=== PATIENT | female | born 1980 | race Caucasian/White ===

== ENCOUNTER 2017-11-03 19:00 | Inpatient (IN) | payer OTHER ==
[~2017-11-03] VITALS: Ht 162.6 cm; Wt 58.1 kg
--- NOTE | 2017-11-03 22:24 | NUR ---
PRE ASSESSMENT: A disheveled female with flushed face and odorous of ETOH in intake with a steady gait. BP 117/77 P 121 O2 sat 97% T 98.6 She states she drank today until a half an hour ago and consumed 750 ml of Vodka and 9 glasses of wine. She states the Vodka was just today and her regular pattern is 2-3 bottles of wine daily. She states she has horrible DTs when she tries to stop drinking on her own that include hallucinations and uncontrolled vomiting. She states her legs get weak and she can barely walk. She admits to being intoxicated at this time but also states she is starting to feel uncomfortable and wants to be medicated to calm her nerves. Offered support. She reports Rheumatoid Arthritis and IBS. The only meds she states she takes at home are Trazodone 50 mg po Q bedtime and OTC stomach acid pulp tester. Will assess on unit.
[2017-11-03] MEDS ORDERED: diphenhydrAMINE 50 MG CAPSULE PO PRN (22:45)
[2017-11-03] MEDS ORDERED: IBUPROFEN 600 MG TABLET PO PRN (22:45)
[2017-11-03] MEDS ORDERED: MIRALAX 17 GM POWD.PACK PO PRN (22:45)
[2017-11-03] MEDS ORDERED: MAGNESIUM HYDROXIDE 30 ML LIQUID UDC PO PRN (22:45)
[2017-11-03] MEDS ORDERED: MAG HYDROX/AL HYDROX/SIMETH 30 ML LIQUID UDC PO PRN (22:45)
[2017-11-03] MEDS ORDERED: LORAZEPAM 1 MG TABLET PO PRN (22:45)
[2017-11-03] MEDS ORDERED: ONDANSETRON 4 MG/2 ML VIAL IM PRN (22:45)
[2017-11-03] MEDS ORDERED: ACETAMINOPHEN 325 MG TABLET PO PRN (22:45)
[2017-11-03] MEDS ORDERED: DICYCLOMINE HCL 20 MG TABLET PO PRN (22:45)
[2017-11-03] MEDS ORDERED: LOPERAMIDE HCL 2 MG CAPSULE PO PRN ×2 (22:45)
[2017-11-03] MEDS ORDERED: ONDANSETRON ODT 4 MG TAB.RAPDIS SL PRN (22:45)
[2017-11-03] MEDS ORDERED: LORAZEPAM 2 MG/1 ML VIAL IM PRN (22:45)
[2017-11-03 23:02] LABS: *AMPHETAMINE, URINE NEGATIVE (NEGATIVE); *BARBITURATE, URINE NEGATIVE (NEGATIVE); *CANNABINOID, URINE NEGATIVE (NEGATIVE); *COCCAINE, URINE NEGATIVE (NEGATIVE); *OPIATE, URINE NEGATIVE (NEGATIVE); *PHENCYCLIDINE SCREEN,URINE NEGATIVE (NEGATIVE)
[2017-11-03 23:27] LABS: *URINE HCG, QUAL NEGATIVE (NEGATIVE)
[2017-11-03 23:44] LABS: BILIRUBIN,TOTAL 0.3 mg/dL (0.2-1.0); CREATININE 0.7 mg/dL (0.6-1.3); MAGNESIUM 2.2 mg/dL (1.8-2.4); POTASSIUM 3.6 mmol/L (3.5-5.1); TOTAL PROTEIN, SERUM 8.6 g/dL (6.4-8.2)
[2017-11-03 23:55] LABS: THYROID STIMULATING HORMONE 0.726 mIU/mL (0.358-3.740)
[2017-11-03 23:57] LABS: BASOPHILS % (AUTO) 0.6 % (0.0-2.0); EOSINOPHILS % (AUTO) 0.2 % (0.0-7.0); HEMATOCRIT 43.6 % (31.2-41.9); LYMPHOCYTES # (AUTO) 1.6 K/uL (20.0-40.0); LYMPHOCYTES % (AUTO) 18.2 % (20.5-51.5); MEAN CORPUSCULAR HEMOGLOBIN 31.4 uug (24.7-32.8); MEAN CORPUSCULAR HGB CONC 35 g/dL (32.3-35.6); MEAN CORPUSCULAR VOLUME 91.1 fL (75.5-95.3); MONOCYTES # (AUTO) 0.7 K/uL (2.0-10.0); MONOCYTES % (AUTO) 8.5 % (0.0-11.0); NEUTROPHILS # (AUTO) 6.2 K/uL (1.8-8.9); NEUTROPHILS % (AUTO) 72.5 % (38.5-71.5); PLATELET COUNT (AUTO) 293 K/uL (179-408); RED BLOOD CELL COUNT(AUTO) 4.78 MIL/uL (3.63-4.92); WHITE BLOOD COUNT (AUTO) 8.5 K/uL (3.8-11.8)
[2017-11-04] VITALS: BP 103/52
[2017-11-04] MEDS ORDERED: THIAMINE HCL 200 MG/2 ML VIAL IM ONE
[2017-11-04] MEDS ORDERED: TRAZODONE 50 MG TABLET PO ONE
--- NOTE | 2017-11-04 00:04 | NUR ---
ADMISSION: A 37 year old female admitted for medically supervised withdrawal from ETOH. She is A/O X 4 and her face is flushed. She is odorous of ETOH and disheveled. She laughs at inappropriate times and appears mildly intoxicated at this time.She states she tried to stop on her own but cannot as her s/s of w/d are too horrific. She reports DT's and hallucinates with leg weakness and uncontrolled vomiting. She states she has been trying to get sober for the last 10 years and can only put 9 months of sobriety together and then relapses. SUBSTANCE USE: She reports drinking 2 bottles of wine daily (1400 ml). since she relapsed in June (4 months).She states she drank today until a half an hour ago and consumed 750 ml of Vodka and 9 glasses of wine. She states the Vodka was just today and her regular pattern is 2 bottles of wine daily. She states she has horrible DTs when she tries to stop drinking on her own that include hallucinations and uncontrolled vomiting. She states her legs get weak and she can barely walk. She states she has been in numerous treatment centers over the last 10 years. [facility] and [facility] are what she can remember at this time. She states she was at [facility] in Oct 2017 and stayed sober until June 2017. 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 She states she is miserable when she drinks and it is ruining her relationship. She states she is motivated to get sober to be a better girlfriend, a better student and a productive member of society. She states she is miserable and needs help. MEDICAL/ PSYCH Hx;
--- NOTE | 2017-11-04 00:15 | NUR ---
VS wnl. Pt is in bed with eyes closed. Respirations even and unlabored. ERIS deferred. Addendum: 11/04/17 at 0250 by VANIA SANDERS RN Entered in error.
--- NOTE | 2017-11-04 00:16 | NUR ---
ADMISSION CONTINUED Medical Hx includes Rheumatoid Arthritis,IBS, Anxiety and Depression. She also reports insomnia and takes Trazodone 50 mg PO at bedtime for sleep which she brought in. She also brought in OTC stomach acid wash worker. She denies Psychiatric hospitalization and she denies S/I and H/I. She denies meds for RA or IBS. She attributes her relapsing to trauma in her childhood and the inability to cope with uncomfortable feelings that come with past trauma. She is reporting she feels agitated and wants meds to calm her down.ERIS 8. Waiting on BAL results. UDS positive for BZOS. She states she took Librium at home 8 days ago for 1 day to try and detox herself but was unsuccessful. She refused Thiamine IM. Oriented Pt to staff and unit. She is laying in bed with side rails up x 2 and bed locked and low. Will provide safe and supportive environment. Addendum: 11/04/17 at 0518 by VANIA SANDERS RN She denies Psychiatric hospitalizations.She states she is motivated to stay sober because she wants to keep her boyfriend and finish her doctoral program and become a productive member of society. Addendum: 11/04/17 at 0649 by VANIA SANDERS RN No PCP reported.
--- NOTE | 2017-11-04 00:30 | NUR ---
CIWA deferred. VS WNL. Respirations even and unlabored. Safety precautions noted.
[2017-11-04] MEDS ORDERED: CLON0.1T PO (01:14)
[2017-11-04] MEDS ORDERED: RANI-563 PO (01:14)
[2017-11-04] MEDS ORDERED: TRAZ-214 PO (01:14)
[2017-11-04] MEDS ORDERED: PROP10TA10 PO (02:30)
[2017-11-04 04:00] VITALS: BP 104/58
--- NOTE | 2017-11-04 04:10 | NUR ---
CIWA deferred. VS wnl.Pt in bed with eyes closed. Respirations even and unlabored.
[2017-11-04] MEDS: LORAZEPAM 1 MG TABLET PO PRN ×2 (05:56→10:30)
--- NOTE | 2017-11-04 06:00 | NUR ---
Pt is A/O X 4. She reports severe anxiety,sweats,agitation and restlessness. Tremors noted to BUE. Her face is flushed. She is emotional and tearful. CIWA 18. PRN Ativan 2 mg PO given to manage s/s of w/d. Will monitor effectiveness of medication.
--- NOTE | 2017-11-04 06:45 | NUR ---
END OF SHIFT: Pt was admitted last night for ETOH w/d. She was intoxicated on arrival. Encouraged fluids and rest. She slept until about 545 this am and awoke c/o agitation , sweats,severe anxiety and restlessness. CIWA 18. PRN Ativan 2 mg PO given to manage s/s of w/d. She is now in bed with eyes closed ,respirations even and unlabored,bed locked and low and call light in reach. CIWA deferred on reassessment. Will pass shift report to oncoming nurse.
--- NOTE | 2017-11-04 07:35 | NUR ---
Start of Shift: Pt. is a 37 y/o female admitted for the medically managed withdrawal from ETOH. Pt. was placed on on PRN medications to manage withdrawal symptoms and is awaiting further assessment by MD. Endorse from previous shift pt. presented with diaphoresis, anxiety, and restlessness during previous shift. Received pt. in room. Pt. in bed with eyes closed. Safety measures in place. Will continue to monitor pt.'s behavior for safety.
[2017-11-04 08:00] VITALS: BP 104/65
--- NOTE | 2017-11-04 08:00 | NUR ---
CIWA Assessment CIWA of 11. Pt. in room and presents with anxiety, restlessness, tremors, and diaphoresis. Will given PRN's as ordered. Will continue to monitor pt.'s behavior for safety.
[2017-11-04] MEDS: CLONIDINE HCL 0.1 MG TABLET PO PRN (08:51)
[2017-11-04] MEDS: HYDROXYZINE PAMOATE 25 MG CAPSULE PO PRN ×2 (08:51→18:11)
--- NOTE | 2017-11-04 08:51 | NUR ---
PRN Medication Pt. in room complaining of increased anxiety. PRN Vistaril, and clonidine given at this time. Will continue to monitor pt.'s behavior for safety.
[2017-11-04] MEDS: MULTIVITAMINS,THERAPEUTIC TABLET PO SCH (08:52)
[2017-11-04] MEDS: THIAMINE HCL 100 MG TABLET PO SCH (08:52)
[2017-11-04] MEDS: FOLIC ACID 1 MG TABLET PO SCH (08:52)
[2017-11-04] MEDS ORDERED: TUBERCULIN,PURIF.PROT.DERIV. 5 TU/0.1 ML TEST ID ONE (09:00)
--- NOTE | 2017-11-04 09:30 | NUR ---
PRN Re-Assessment Pt. in bed falling asleep. No signs of distress noted. Pt. reports decreased feelings of anxiety. Will continue to monitor pt.'s behavior for safety.
--- NOTE | 2017-11-04 10:30 | NUR ---
CIWA Assessment/PRN medication CIWA of 17. Pt. in room and presents with anxiety, restlessness, tremors, sensitivity to light and sound, nausea, and diaphoresis. PRN Ativan 2mg P.O. given as ordered. Will continue to monitor pt.'s behavior for safety and medication effectiveness.
--- NOTE | 2017-11-04 11:30 | NUR ---
CIWA Assessment/PRN Re-Assessment CIWA of 15. Pt. in room and presents with anxiety, restlessness, tremors, and diaphoresis. Pt. reports feeling less anxiety and agitation. Medication effective. Will continue to monitor pt. for safety.
[2017-11-04 12:00] VITALS: BP 106/67
[2017-11-04] MEDS ORDERED: RANITIDINE HCL 150 MG PO PRN (13:00)
[2017-11-04] MEDS ORDERED: 3 DAY TAPER OF VALIUM-SERENITY PROTOCOL PO PRN (13:15)
[2017-11-04] MEDS ORDERED: DIAZEPAM 5 MG TABLET PO PRN (13:15)
[2017-11-04] MEDS ORDERED: DIAZEPAM 10 MG TABLET PO PRN ×2 (13:15)
[2017-11-04] MEDS ORDERED: FAMOTIDINE 20 MG TABLET PO PRN (13:30)
[2017-11-04 16:00] VITALS: BP 109/70
--- NOTE | 2017-11-04 16:00 | NUR ---
CIWA Assessment CIWA of 15. Pt. in room and presents with anxiety, restlessness, tremors, and diaphoresis. Will give pt. medication as ordered. Will continue to monitor pt.'s behavior for safety.
--- NOTE | 2017-11-04 18:11 | NUR ---
PRN Medication Pt. in bed complaining of increased anxiety. PRN Vistaril given at this time. Will continue to monitor pt.'s behavior for safety and medication effectiveness.
--- NOTE | 2017-11-04 18:50 | NUR ---
PRN Re-Assessment Pt. in room and reports a decreased in her anxiety. Medication effective. Will continue to monitor pt.'s behavior for safety.
--- NOTE | 2017-11-04 19:00 | NUR ---
End of Shift: Pt. is a 37 y/o female admitted for the medically managed withdrawal from ETOH. Pt. was placed on a 3 day valium taper to manage withdrawal symptoms. Throughout shift pt. presented with diaphoresis, anxiety, and restlessness. Encouraged pt. to verbalize concerns and emotions. Safety measures in place. Will endorse pt.'s care to oncoming shift.
--- NOTE | 2017-11-04 19:30 | NUR ---
START OF SHIFT Pt is a 37 y/o female admitted for the medically supervised withdrawal from ETOH. Pt is placed on a 3 day Valium taper as ordered. Per report, Pt was c/o diaphoresis, anxiety, and restlessness. PRN Vistaril,Ativan and Clonidine were given and were effective. Pt received in room,sitting in bed.A/A/O X 4. Pt c/o feeling anxious but does not want to take any meds at this time.Valium 10 mg PO is soon due.Pt is also requesting for a sleep aid.All safety measures are in place,call light is within reach, will continue to monitor for safety.
[2017-11-04 20:00] VITALS: BP 124/85
[2017-11-04] MEDS: TRAZODONE 100 MG TABLET PO PRN (20:54)
--- NOTE | 2017-11-04 20:55 | NUR ---
PRN TRAZODONE 50 MG PO GIVEN FOR C/O INSOMNIA PER PT REQUEST.WILL CONTINUE TO MONITOR.
[2017-11-04] MEDS ORDERED: DIAZEPAM 10 MG TABLET PO SCH (21:00)
--- NOTE | 2017-11-04 22:00 | NUR ---
PRN REASSESSMENT PRN Trazodone is effective.Pt is calm and resting in bed with eyes closed;breathing is even and non labored, no s/s of distress noted,will continue to monitor.
[2017-11-05] VITALS: BP 123/75
--- NOTE | 2017-11-05 | NUR ---
CIWA DEFERRED Pt is in deep sleep,breathing is even and non labored,no s/s distress noted,will continue tp monitor.
[2017-11-05 04:20] VITALS: BP 111/67
--- NOTE | 2017-11-05 04:39 | NUR ---
PRN VALIUM 5 MG PO GIVEN FOR CIWA 8.PT IS VERY ANXIOUS,SOMEWHAT RESTLESS AND WORRIED THAT SHE MIGHT HAVE A SEIZURE.EMOTIONAL SUPPORT PROVIDED.V/S ARE NORMAL.DEEP BRTEATHING ENCOURAGED,WILL CONTINUE TO MONITOR FOR SAFETY.
--- NOTE | 2017-11-05 05:30 | NUR ---
PRN VALIUM IS EFFECTIVE IN REDUCING ANXIETY.PT STATES "FEELING BETTER".
--- NOTE | 2017-11-05 06:54 | NUR ---
END OF SHIFT Pt is a 37 y/o female admitted for the medically supervised withdrawal from ETOH. Pt placed on a 3 day valium taper and is tolerating well.Pt is A/A/O X 4. Pt c/o feeling anxious and feeling restless.PRN Trazodone and Valium 5 mg po given with good effect.Last CIWA=8. Pt slept 8 hours,fluid intake was 800 ml,voided x 1 and had 1x BM.All safety measures are in place,call light is within reach, will continue to monitor.
[2017-11-05 08:06] VITALS: BP 119/73
--- NOTE | 2017-11-05 08:15 | NUR ---
START OF SHIFT: Received Pt. A/O X 4. She presents with anxious mood and congruent affect. Her skin is moist and obvious sweat on forehead. Fine tremors noted to BUE. She reports sleeping well. She reports anxiety,restlessness and irritability. CIWA 14. Modified Valium taper in progress to manage s/s of w/d. Encouraged increased fluids o promote hydration. Encouraged group attendance to improve coping skills and prevent relapse. Will continue to monitor and offer support.
[2017-11-05] MEDS: DIAZEPAM 5 MG TABLET PO SCH ×3 (08:39→20:55)
[2017-11-05] MEDS: THIAMINE HCL 100 MG TABLET PO SCH (08:39)
[2017-11-05] MEDS: FOLIC ACID 1 MG TABLET PO SCH (08:39)
[2017-11-05] MEDS: MULTIVITAMINS,THERAPEUTIC TABLET PO SCH (08:39)
--- NOTE | 2017-11-05 10:34 | NUR ---
Therapist prompted client to attend all group therapy sessions.
[2017-11-05 12:00] VITALS: BP 130/86
--- NOTE | 2017-11-05 12:10 | NUR ---
CIWA 12 She reports anxiety,sweats,tremors ,irritability and fatigue.
[2017-11-05 16:00] VITALS: BP 136/86
[2017-11-05] MEDS: HYDROXYZINE PAMOATE 25 MG CAPSULE PO PRN (17:30)
--- NOTE | 2017-11-05 18:44 | NUR ---
END OF SHIFT: Pt continues on Valium taper to manage s/s of w/d which include sweats,anxiety,restlessness and depression. She denies S/I and H/I. Last CI. She attended a group this afternoon. She was isolative most of shift in her room. She states the detox meds are effective. Will pass shift report to oncoming night nurse.
--- NOTE | 2017-11-05 19:30 | NUR ---
START OF SHIFT Pt is a 37 y/o female admitted for the medically supervised withdrawal from ETOH. Pt is continues on a 3 day Valium taper as ordered. Pt received in room,sitting in bed.A/A/O X 4. Pt c/o feeling anxious; mood is sad and depressed; encouraged to interact with peers and verbalize needs and concerns.PRN meds offered but does not want to take any meds at this time.Valium 5 mg PO is soon due.Last CIWA=12.Pt is also requesting for a sleep aid.All safety measures are in place,call light is within reach, will continue to monitor for safety.
[2017-11-05 20:00] VITALS: BP 122/80
--- NOTE | 2017-11-05 20:00 | NUR ---
CIWA=10 Pt is sad,anxious,guarded,worried and has bilateral hand tremors.
[2017-11-05] MEDS: TRAZODONE 100 MG TABLET PO PRN (20:56)
--- NOTE | 2017-11-05 20:56 | NUR ---
PRN TRAZODONE 50 MG PO GIVEN FOR C/O INSOMNIA.WILL MONITOR.
--- NOTE | 2017-11-05 21:00 | NUR ---
PRN REASSESSMENT PRN Trazodone is effective.Pt is resting in bed with eyes closed,no s/s of stress noted.
--- NOTE | 2017-11-06 | NUR ---
CIWA CIWA deferred due to pt being asleep.Pt is calm and and resting in bed with eyes closed,no s/s of distress noted,v/s refused;will continue to monitor.
--- NOTE | 2017-11-06 | NUR ---
CIWA CIWA deferred due to pt being asleep.Pt is calm and and resting in bed with eyes closed,no s/s of distress noted,v/s refused;will continue to monitor.
--- NOTE | 2017-11-06 06:44 | NUR ---
END OF SHIFT Pt is a 37 y/o female admitted for the medically supervised withdrawal from ETOH. Pt continues on a 3 day valium taper and is tolerating well.Pt is A/A/O X 4.PRN Trazodone was given for c/o insomnia and was effective.Last CIWA=10. Pt slept 7 hours,fluid intake was 950 ml,voided x 1.All safety measures are in place,call light is within reach, will continue to monitor.
--- NOTE | 2017-11-06 08:00 | NUR ---
Start of Shift / CIWA 10 Pt is a 37 y/o M admitted on 11/03/17 for medically supervised ETOH withdrawal. Pt continues on a 3 day valium taper; today is the third day and pt is tolerating well. Pt has a flat affect, is guarded, facial flushing, anxiety, agitation, irritability, restlessness, and tremors are felt. Encouraged pt to increase fluids as tolerated and to verbalize feelings about situation. Last CIWA 10, slept 7 hrs, trazodone prn given last night. Side rails upx2, bed in low position, call light within reach. Will continue to monitor.
[2017-11-06 08:35] VITALS: BP 113/80
[2017-11-06] MEDS: MULTIVITAMINS,THERAPEUTIC TABLET PO SCH (09:33)
[2017-11-06] MEDS: DIAZEPAM 5 MG TABLET PO SCH ×2 (09:33→20:34)
[2017-11-06] MEDS: THIAMINE HCL 100 MG TABLET PO SCH (09:33)
[2017-11-06] MEDS: FOLIC ACID 1 MG TABLET PO SCH (09:33)
--- NOTE | 2017-11-06 10:25 | NUR ---
Therapist prompted client to attend all group therapy sessions and client stated that she would be attending.
[2017-11-06 12:10] VITALS: BP 115/79
--- NOTE | 2017-11-06 12:19 | NUR ---
CIWA 9 Pt has been isolative in room, has not attended afternoon group. Pt presents facial flushing, anxiety, agitation, irritability, restlessness, and tremors are felt. Pt verbalized she is stressed and worried about being able to return back to school and is eager to finished detox. Encouraged pt to pursue aftercare and to continue to verbalizing her feelings. Safety measures in place. Will continue to monitor.
[2017-11-06 13:06] LABS: HEPATITIS B SURFACE AG Negative (Negative)
[2017-11-06] MEDS ORDERED: CLON0.1T PO (14:08)
[2017-11-06] MEDS ORDERED: HYDR-3895 PO (14:08)
[2017-11-06] MEDS ORDERED: TRAZ-214 PO (14:08)
[2017-11-06] MEDS: HYDROXYZINE PAMOATE 25 MG CAPSULE PO PRN (15:11)
--- NOTE | 2017-11-06 15:11 | NUR ---
PRN Vistaril 50 mg po prn given for c/o increased anxiety, sense of panic, agitation, pt appears flushed and fidgety. Will monitor and reassess.
[2017-11-06 16:30] VITALS: BP 119/81
--- NOTE | 2017-11-06 16:30 | NUR ---
CIWA 11 Pt was able to attend group, c/o increased anxiety and agitation, presents facial flushing, irritability, restlessness, and tremors are felt. Clonidine 0.1 mg po prn given prior to groups. Safety measures in place. Will continue to monitor.
--- NOTE | 2017-11-06 16:35 | NUR ---
Reassessment Pt reports med has been effective partially however anxiety is increased due to recent group therapy.
--- NOTE | 2017-11-06 19:27 | NUR ---
End Of Shift Pt verbalized she has been anxious about issues regarding school. Pt verbalized wanting to leave earlier but does not want to leave AMA. Pt was able to attend group. Last CIWA 11 @1600. Clonidine 0.1 mg po prn given and effective. Safety measures in place.
--- NOTE | 2017-11-06 19:30 | NUR ---
START OF SHIFT Received 37 year old female patient admitted on 11/03/17 for ETOH withdrawal. Pt is alert and oriented x4. She is noted to be anxious, restless, irritable, and agitated. She is currently receiving 4 day Ativan taper and tolerating well. Per endorsement, she received PRN Vistaril Last CIWA:11 at 1600. Breathing is even and unlabored, safety measures in place. Will continue to monitor.
[2017-11-06 20:00] VITALS: BP 129/85
--- NOTE | 2017-11-06 20:00 | NUR ---
CIWA Pt complains of anxiety, restlessness, agitation and flushed face. CIWA:9 prior to 2100 medication administration. Will continue to monitor.
[2017-11-06] MEDS: TRAZODONE 100 MG TABLET PO PRN (21:49)
--- NOTE | 2017-11-06 21:49 | NUR ---
PRN TRAZODONE/MILK OF MAGNESIA Pt complains of constipation and difficulty sleeping. PRN Trazodone and Milk of Magnesia administered as ordered. Safety measures in place. Will continue to monitor effectiveness.
--- NOTE | 2017-11-06 22:49 | NUR ---
PRN TRAZODONE/MILK OF MAGNESIA REASSESSMENT PRN Milk of Magnesia ineffective at this time. No BM noted. PRN Trazodone effective. Pt is lying in bed with eyes closed noted to be asleep. Breathing is even and unlabored, safety measures in place. Will monitor.
--- NOTE | 2017-11-07 | NUR ---
VITALS REFUSED, CIWA DEFERRED 0000 vitals refused. CIWA deferred d/t pt lying in bed with eyes closed noted to be asleep. Breathing even and unlabored, safety measures in place. Will continue to monitor.
--- NOTE | 2017-11-07 04:00 | NUR ---
VITALS REFUSED, CIWA DEFERRED 0400 vitals refused. CIWA deferred d/t pt lying in bed with eyes closed noted to be asleep. Breathing even and unlabored, safety measures in place. Will continue to monitor.
--- NOTE | 2017-11-07 07:18 | NUR ---
END OF SHIFT Pt is a 37 year old female patient admitted on 11/03/17 for ETOH withdrawal. Pt remains alert and oriented x4. She was noted to be anxious, restless, irritable, and agitated during the shift. She continues on a 4 day Ativan taper and tolerating well. She slept a total of 7 hrs, Intake:1055mL, Void: x2, BM:0, Last CIWA: 9 at 2000. Breathing is even and unlabored, safety measures in place. Endorsed to AM shift.
--- NOTE | 2017-11-07 07:45 | NUR ---
Start of Shift / CIWA 9 Pt is a 37 y/o F admitted on 11/03/17 for medically supervised ETOH withdrawal. Pt has completed a 3 day valium taper that ended last night and tolerated well. Pt has a flat affect, is guarded, facial flushing, anxiety, agitation, irritability, restlessness, and tremors are felt. Encouraged pt to increase fluids as tolerated and to verbalize feelings about situation. Last CI 9, slept 7 hrs, trazodone and MOM prns given last night. Encouraged pt to attend groups. Side rails upx2, bed in low position, call light within reach. Will continue to monitor.
[2017-11-07 08:12] VITALS: BP 143/93
[2017-11-07] MEDS: CLONIDINE HCL 0.1 MG TABLET PO PRN (08:57)
[2017-11-07] MEDS: THIAMINE HCL 100 MG TABLET PO SCH (08:57)
[2017-11-07] MEDS: MULTIVITAMINS,THERAPEUTIC TABLET PO SCH (08:57)
[2017-11-07] MEDS: FOLIC ACID 1 MG TABLET PO SCH (08:57)
--- NOTE | 2017-11-07 08:57 | NUR ---
PRN Clonidine 0.1 mg po prn given for c/o anxiety, agitation, restlessness. Will monitor and reassess.
--- NOTE | 2017-11-07 09:57 | NUR ---
Reassessment Pt is laying in bed with eyes closed, with lights off, appears to be sleeping. Will continue to monitor.
--- NOTE | 2017-11-07 12:00 | NUR ---
CIWA 9 Pt continues to have anxiety and agitation, facial flushing, irritability, restlessness, and tremors are felt. Pt states she is more anxious about getting a letter sent out to her school so they know where she was. Encouraged pt to use deep breathing exercises to promote relaxation. Will continue to monitor.
[2017-11-07 12:16] VITALS: BP 127/82
[2017-11-07 16:00] VITALS: BP 118/73
--- NOTE | 2017-11-07 16:30 | NUR ---
CIWA 9 Pt states she does not want to attend groups until she is able to send a letter to school explaining her absence despite educating pt on benefits. Pt continues to have anxiety and agitation, facial flushing, irritability, restlessness, and tremors are felt. Encouraged pt to use deep breathing exercises to promote relaxation. Will continue to monitor.
--- NOTE | 2017-11-07 19:26 | NUR ---
End Of Shift Pt verbalized she has been anxious about issues about not being helped with sending an email to school in timely. Pt has not been attending groups. Last CIWA 9 @1600. Clonidine 0.1 mg po prn given and effective. Safety measures in place.
--- NOTE | 2017-11-07 19:30 | NUR ---
Start of Shift Pt is a 37 y/o F admitted for ETOH withdrawal. Pt has completed a 3 day Valium taper and is scheduled for discharge tomorrow. Pt is A/A/O X 4, appears anxious,worried,guarded and preoccupied with being discharged. Last CIWA 9.PRN Clonidine was given for anxiety and was effective. All safety measures n place.Side rails upx2, bed in low position, call light within reach. Will continue to monitor.
[2017-11-07 20:00] VITALS: BP 125/84
--- NOTE | 2017-11-07 20:00 | NUR ---
CIWA Pt c/o anxiety and is requesting for sleep medication at bed time. CIWA=8.No c/o pain noted. Will continue to monitor.
[2017-11-07] MEDS: TRAZODONE 100 MG TABLET PO PRN (21:31)
--- NOTE | 2017-11-07 21:32 | NUR ---
PRN MED PRN Trazodone 50 mg PO given for c/o insomnia,will monitor for effectiveness.
--- NOTE | 2017-11-07 22:30 | NUR ---
PRN F/U Pt is still awake in bed trying to sleep.
--- NOTE | 2017-11-07 23:40 | NUR ---
Pt c/o feeling anxious regarding her discharge tomorrow and is unable to sleep.Relaxation techniques encouraged,will continue to monitor.
[2017-11-07] MEDS: HYDROXYZINE PAMOATE 25 MG CAPSULE PO PRN (23:43)
--- NOTE | 2017-11-07 23:44 | NUR ---
PRN VISTARIL GIVEN FOR ANXIETY.WILL MONITOR.
[2017-11-08] VITALS: BP 131/79
--- NOTE | 2017-11-08 | NUR ---
CIWA Pt c/o anxiety, sleep medication given at bedtime is not effective.PRN Vistaril given earlier. CIWA=8.No c/o pain noted. Will continue to monitor.
--- NOTE | 2017-11-08 00:47 | NUR ---
PRN F/U Pt is calm and resting in bed with eyes closed,breathing is even and non labored,no s/s of distress noted,will continue to monitor.
--- NOTE | 2017-11-08 04:00 | NUR ---
CIWA DEFERRED CIWA deferred d/t pt lying in bed with eyes closed noted to be asleep. Breathing even and unlabored, safety measures in place,v/s refused. Will continue to monitor.
--- NOTE | 2017-11-08 06:40 | NUR ---
END OF SHIFT Pt is a 37 y/o F admitted for ETOH withdrawal. Pt has completed a 3 day Valium taper and is scheduled for discharge today. Pt is A/A/O X 4, appears anxious, worried, guarded and preoccupied with being discharged. Last CIWA was 8. PRN Vistaril and Benadryl were given for anxiety and insomnia with good effect. Pt slept 7 hours, fluid intake was 1355 ML,voided x 2, no BM reported. All safety measures in place.Side rails upx2, bed in low position, call light within reach. Will continue to monitor.
--- NOTE | 2017-11-08 08:00 | NUR ---
Start of Shift / CIWA 7 Pt is a 37 y/o F admitted on 11/03/17 for medically supervised ETOH withdrawal. Pt has completed a 3 day valium taper and tolerated well. Pt is medically cleared to be discharged. Pt presents a flat affect, anxiety, agitation, irritability, restlessness, appears flushed and tremors are felt. Last CIWA 8, slept 7 hrs, trazodone and vistaril prns given last night. Side rails upx2, bed in low position, call light within reach. Will continue to monitor.
[2017-11-08 08:03] VITALS: BP 105/65
[2017-11-08] MEDS: MULTIVITAMINS,THERAPEUTIC TABLET PO SCH (08:50)
[2017-11-08] MEDS: FOLIC ACID 1 MG TABLET PO SCH (08:50)
[2017-11-08] MEDS: THIAMINE HCL 100 MG TABLET PO SCH (08:50)
[2017-11-08] MEDS: HYDROXYZINE PAMOATE 25 MG CAPSULE PO PRN (08:51)
--- NOTE | 2017-11-08 08:51 | NUR ---
PRN Vistaril 50 mg po prn for c/o increased anxiety due to being discharged. Will monitor until discharge.
--- NOTE | 2017-11-08 09:45 | NUR ---
Reassessment Pt verbalized med was effective in decreasing anxiety. Pt states she is ready to be discharged.
--- NOTE | 2017-11-08 09:57 | NUR ---
Discharge Note Pt is in stable condition, vs wnl. Last CIWA 7 @0800. Pt discharge instructions given and pt verbalized understanding. aware of pt d/c. Pt left the building at 0957 on 10/08/17 with all belongings, prescription, home meds and discharge paperwork.
== END 2017-11-08 09:57 | disposition home or self-care (01) | DRG 895 ==
LOC: SRC 21:24
PROVIDERS: ADMIT Family Medicine Addiction Medicine; ATTEND Family Medicine Addiction Medicine
PROC: HZ2ZZZZ Detoxification Services for Substance Abuse Treatment (ICD-10-PCS; principal; 2017-11-03)
PROC: HZ41ZZZ Group Counseling for Substance Abuse Treatment, Behavioral (ICD-10-PCS; 2017-11-06)
PROC: HZ31ZZZ Individual Counseling for Substance Abuse Treatment, Behavioral (ICD-10-PCS; 2017-11-06)
DX: F10.231 Alcohol dependence with withdrawal delirium (principal); Y90.9 Presence of alcohol in blood, level not specified; M05.9 Rheumatoid arthritis with rheumatoid factor, unspecified; K58.2 Mixed irritable bowel syndrome; G47.00 Insomnia, unspecified; Z81.1 Family history of alcohol abuse and dependence; F41.9 Anxiety disorder, unspecified; F17.210 Nicotine dependence, cigarettes, uncomplicated
CPT/HCPCS: 36415; 70030-TC; 80307; 83690; 83735; 84443; 84703; 85025; 86592; 86705; 86803; 87340; 87806; G0480